=== PATIENT | male | born 1980 | race Caucasian/White ===

== ENCOUNTER 2023-01-03 14:03 | Outpatient (AMB) | payer OTHER, SELFPAY ==
--- NOTE | 2023-01-03 14:17 | AM.OFFWIN_ITS ---
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 Patient Tobacco Use Status: Current everyday Tobacco user Allergies No Known Allergies [No Known Allergies*] Allergy (Verified 01/06/23 07:04) Medication List - Last Reconciled 01/06/23 by Michael Vázquez MD No Known Home Meds Do you need a note to return to daycare/school/sports/work: Yes HPI EP RT Shoulder pain HPI Details 42-year-old presents to the office for a sick visit. Patient is complaining of pain in the right shoulder. No history of fall or injury. Pain on lifting his arm over the shoulder level. Occasional tingling and numbness over the right arm. [facility] Social History Patient Tobacco Use Status: Current everyday Tobacco user Physical Exam Vital Signs: Last Vital Signs Pulse 114 H 01/03/23 14:21 BP 160/100 H 01/03/23 14:21 Pulse Ox 94 01/03/23 14:21 Oxygen Delivery Method Room Air 01/03/23 14:21 Const General: cooperative and healthy appearing Nutritional Appearance: well nourished Orientation/consciousness: patient oriented x3 Limitations: no limitations HEENT Head: Yes normal to inspection Eyes General: appearance normal, both eyes and all related structures Neck Neck: Yes normal visual inspection Chest Chest palpation & inspection: normal palpation of entire chest wall Resp Effort & Inspection: normal respiratory effort Neuro General: patient oriented x3 Extrem Other: Right shoulder: No AC joint tenderness. Able to abduct the arm up to 90 degrees. Unable to elevate the arm over the shoulder. Full internal and external rotation. Assessment & Plan Assessment & Plan (1) Sprain of right shoulder: Code(s): S43.401A - Unspecified sprain of right shoulder joint, initial encounter Qualifiers: Encounter type: initial encounter Shoulder sprain type: unspecified sprain Qualified Code(s): S43.401A - Unspecified sprain of right shoulder joint, initial encounter Plan: X-ray images personally reviewed by me. Patient was given arm sling and stretching exercises suggested. If symptoms do not improve to follow-up here Orders: Orders XR shoulder RT min 2V 01/03/23 S43.401A - Unspecified sprain of right shoulder joint, initial encounter Coding Level of Care Code Est Pt Level 4 ([id number]) Diagnoses Sprain of right shoulder, unspecified shoulder sprain type, initial encounter S43.401A Encounter type: initial encounter Shoulder sprain type: unspecified sprain
[2023-01-03 14:21] VITALS: BP 160/100; PULSE 114; O2SAT 94
== END 2023-01-03 15:47 | disposition home or self-care (01) ==
PROVIDERS: Visit Provider Internal Medicine
DX: S43.401A Unspecified sprain of right shoulder joint, initial encounter (principal)
CPT/HCPCS: 99214

== ENCOUNTER 2023-01-03 14:32 | Outpatient (REF) | payer OTHER, SELFPAY ==
--- NOTE | ~2023-01-03 | XR_ITS ---
EXAMINATION: XR SHOULDER, RIGHT CLINICAL INFORMATION: Shoulder sprain COMPARISON: None available. TECHNIQUE: AP external rotation, Grashey, scapular Y views of the right shoulder. FINDINGS: The bones and soft tissues are normal. No fracture. Glenohumeral and acromioclavicular alignment is anatomic with normal joint space. No abnormal soft tissue calcifications. XR/XR shoulder RT min 2V IMPRESSION: Normal right shoulder.
== END 2023-01-03 14:33 | disposition home or self-care (01) ==
LOC: HO.HMGCX 14:32
PROVIDERS: Visit Provider Internal Medicine
DX: S43.401A Unspecified sprain of right shoulder joint, initial encounter (principal)
CPT/HCPCS: 73030